=== PATIENT | female | born 1975 | race Two or more races ===

== ENCOUNTER 2019-03-04 12:13 | Emergency (ER) | payer OTHER ==
[~2019-03-04] VITALS: Ht 154.9 cm; Wt 67.8 kg
[2019-03-04 13:14] LABS: ALANINE AMINOTRANSFERASE 14 U/L (12-78); ALBUMIN 3.8 g/dL (3.4-5.0); ANION GAP 9 mmol/L (5-15); CALCIUM 8.3 mg/dL (8.5-10.1); CHLORIDE 106 mmol/L (98-107); CREATININE 0.98 mg/dL (0.55-1.02)
[2019-03-04 13:19] LABS: ALKALINE PHOSPHATASE 76 U/L (45-117); BILIRUBIN,TOTAL 0.7 mg/dL (0.2-1.0); TOTAL PROTEIN 7.4 g/dL (6.4-8.2)
--- NOTE | 2019-03-04 13:25 | NUR ---
FIRST CONTACT WITH PT. PT C/O FEVER, COUGH, SOB, SORE THROAT FOR TWO DAYS. VOMITING SINCE THIS AM. PT'S AOX4. RESPS EVEN AND UNLABORED. ALL MONITORS IN PLACE. CALL LIGHT WITHIN REACH. SINUS TACHY ON GENERAL MEDICAL PRACTITIONER WITHOUT ECTOPY RATE 110'S AT THIS TIME. EDMD AT BEDSIDE TO ASSESS.
[2019-03-04 13:30] LABS: MEAN CORPUSCULAR HEMOGLOBIN 21.5 pg (27.0-34.8); MEAN CORPUSCULAR VOLUME 69.2 fL (80-100); MEAN PLATELET VOLUME 9.1 fL (7.4-10.4); PLATELET COUNT 391 x10^3/uL (130-400); RED BLOOD COUNT 4.59 x10^6/uL (3.82-5.3); RED CELL DISTRIBUTION WIDTH 18.3 % (9.6-15.2)
[2019-03-04] MEDS ORDERED: IBUPROFEN 600 MG TABLET PO ONE (13:30)
[2019-03-04] MEDS ORDERED: DEXAMETHASONE 4 MG TABLET ONE (13:30)
[2019-03-04] MEDS ORDERED: DEXAMETHASONE 4 MG TABLET PO ONE (13:30)
[2019-03-04] MEDS ORDERED: ONDANSETRON ODT 4 MG PO ONE (13:30)
[2019-03-04] MEDS ORDERED: ACETAMINOPHEN 500 MG TABLET PO ONE (13:30)
[2019-03-04] MEDS ORDERED: ACETAMINOPHEN 500 MG TABLET ONE (13:30)
[2019-03-04] MEDS ORDERED: IBUPROFEN 600 MG TABLET ONE (13:30)
[2019-03-04] MEDS ORDERED: ONDANSETRON ODT 4 MG ONE (13:30)
[2019-03-04 13:32] LABS: BASOPHILS # (AUTO) 0.04 x10^3/uL (0-0.1); BASOPHILS % (AUTO) 0 % (0-1); EOSINOPHILS % (AUTO) 0 % (1-7); LYMPHOCYTES # (AUTO) 0.85 x10^3/uL (1-3.4); LYMPHOCYTES % (AUTO) 7 % (22-44); MD SCAN; MONOCYTES # (AUTO) 0.25 x10^3/uL (0.2-0.8); MONOCYTES % (AUTO) 2 % (2-9); NEUTROPHILS # (AUTO) 10.93 x10^3/uL (1.8-6.8); NEUTROPHILS % (AUTO) 91 % (42-75)
--- NOTE | 2019-03-04 13:46 | NUR ---
PT MEDICATED PER EMAR. PT TOLERATED WELL.
--- NOTE | 2019-03-04 13:46 | NUR ---
PT AMB TO BR AND BACK TO ROOM WITH STEADY GAIT. UA SENT.
[2019-03-04 13:47] LABS: RAPID INFLUENZA A Negative (Negative); RAPID INFLUENZA B Negative (Negative)
[2019-03-04 13:59] LABS: CULTURE INDICATED? YES; MICROSCOPIC INDICATED
--- NOTE | 2019-03-04 14:03 | NUR ---
PT PROVIDED SOME WATER NOW.
[2019-03-04 14:36] VITALS: BP 112/70
--- NOTE | 2019-03-04 14:43 | NUR ---
PT GIVEN DC INSTRUCTIONS AND SCRIPTS. PT EDUCATED REGARDING DC MEDICATIONS. PT'S AOX4. RESPS EVEN AND UNLABORED. PT AMB TO DC WITH STEADY GAIT. NO ACUTE DISTRESS AT DC.
== END 2019-03-04 14:44 | disposition home or self-care (01) ==
LOC: ED 14:04
DX: J06.9 Acute upper respiratory infection, unspecified (principal)
CPT/HCPCS: 36415; 71046; 80053; 81001; 83690; 84703; 85025; 87081; 87086; 87400; 87880; 93005; 99284; Q0162